=== PATIENT | female | born 1945 | race Caucasian/White ===

== ENCOUNTER → 2017-03-26 | Outpatient (CLI) | payer OTHER ==
[~2017-03-26] MED LIST: CELEXA20 MG PO; CITRACAL + BON1 EACH PO; RALOXIFENE HCL60 MG PO; RED YEAST RICE600 M1 PO; TRAMADOL 50 MG50 MG PO; VITAMIN D-32000 UNIT PO
--- NOTE | ~2017-03-26 | 2DMMODE ---
[facility] [address] [place] [address] 2 D/M-MODE ECHOCARDIOGRAM Name: ALICE CAMACHO Room #: REG CL Evi#: [id number] Admission: 03/26/17 Attend Phys: Howard Wall Discharge: Date of : 43 Date of Service: 03/26/17 1526 Report #: [id number] THIS REPORT FOR: //name// APPROVED REPORT Study performed: 03/26/2017 13:24:40 EXAM: Comprehensive 2D, Doppler, and color-flow Echocardiogram Patient Location: Out-Patient Room #: Echo lab Status: routine Other Information Study Quality: Adequate Indications Abnormal ECG 2D Dimensions RVDd: 32.04 mm LVEF(%): 55.35 (>50%) IVSd: 10.21 (7-11mm) LVOT Diam: 19.61 (18-24mm) LVDd: 43.88 mm PWd: 10.27 (7-11mm) Ascending Ao: 27.52 (22-36mm) LVDs: 31.33 (25-40mm) Aortic Root: 30.20 mm IVC: 15.00 mm Lopez's LVEF: 55.35 % Volumes Left Atrial Volume (Systole) Single Plane 4CH: 32.48 mL Single Plane 2CH: 30.98 mL LA ESV Index: 17.00 mL/m2 Aortic Valve AoV Peak Finn.: 1.33 m/s AO Peak Gr.: 7.08 mmHg LVOT Max P.20 mmHg LVOT Max V: 1.14 m/s CRISTIAN Vmax: 2.59 cm2 Mitral Valve E/A Ratio: 0.6 MV Decel. Time: 366.54 ms MV E Max Finn.: 0.68 m/s MV A Finn.: 1.16 m/s MV PHT: 106.30 ms IVRT: 134.95 ms [facility] [place] [address] 2 D/M-MODE ECHOCARDIOGRAM Name: ALICE CAMACHO Chinmay Room #: REG [facility] [id number] Admission: 03/26/17 Attend Phys: Howard Wall Discharge: Date of : 43 Date of Service: 03/26/17 1526 Report #: [id number] Pulmonary Valve PV Peak Finn.: 0.92 m/s PV Peak Gr.: 3.40 mmHg Pulmonary Vein P Vein S: 0.72 m/s P Vein A: 0.37 m/s P Vein D: 0.43 m/s P Vein A Dur.: 128.0 msec P Vein S/D Ratio: 1.67 Tricuspid Valve TR Peak Finn.: 2.91 m/s RAP Estimate: 5.00 mmHg TR Peak Gr.: 33.93 mmHg PA Pressure: 39.00 mmHg Left Ventricle The left ventricle is normal size. There is normal left ventricular wall thickness. The left ventricular systolic function is normal. The left ventricular ejection fraction is within the normal range. LVEF is 55-60%. Grade I - abnormal relaxation pattern. Right Ventricle The right ventricle is normal size. The right ventricular systolic function is normal. Atria The left atrium size is normal. The right atrium size is normal. Aortic Valve The aortic valve is normal in structure. No aortic regurgitation is present. There is no aortic valvular stenosis. Mitral Valve The mitral valve is normal in structure. Trace mitral regurgitation. No evidence of mitral valve stenosis. Tricuspid Valve The tricuspid valve is normal in structure. There is trace tricuspid regurgitation. The right atrial pressure is estimated at 5 mmHg. There is mild pulmonary hypertension. Pulmonic Valve The pulmonary valve is normal in structure. There is no pulmonic valvular regurgitation. [employer] [facility] [address] [place] [address] 2 D/M-MODE ECHOCARDIOGRAM Name: ALICE CAMACHO Room #: REG CL Mayte#: [id number] Admission: 03/26/17 Attend Phys: Howard Wall Discharge: Date of : 43 Date of Service: 03/26/17 1526 Report #: [id number] The aortic root is normal in size. IVC is normal in size and collapses >50% with inspiration. Pericardium Trace pericardial effusion. <Conclusion> The left ventricle is normal size. LVEF is 55-60%. The aortic valve is normal in structure. The mitral valve is normal in structure. The tricuspid valve is normal in structure. There is trace tricuspid regurgitation. The right atrial pressure is estimated at 5 mmHg. There is mild pulmonary hypertension. The pulmonary valve is normal in structure. Trace pericardial effusion. <ELECTRONICALLY SIGNED> By: Howard Mills MD 03/26/17 1526 1526 1526 Howard Mills MD /INF
== END ==
LOC: NUC 13:52 → CV 13:52
DX: I08.1 Rheumatic disorders of both mitral and tricuspid valves (principal); I44.7 Left bundle-branch block, unspecified; R94.31 Abnormal electrocardiogram [ECG] [EKG]

== ENCOUNTER 2017-03-27 06:17 | Inpatient (IN) | payer OTHER ==
[2017-03-21 14:09] LABS: HEMATOCRIT 42.1 % (37.0-47.0); HEMOGLOBIN 14.2 gm/dL (12.0-15.0); MCH 29.1 pg (26.0-34.0); MCHC 33.6 g/dL (28.0-37.0); MCV 86.4 fL (80.0-100.0); RBC 4.87 mil/uL (4.20-5.00); WBC 7.5 thou/uL (4.0-11.0)
[2017-03-21 14:10] LABS: URINE BILIRUBIN NEGATIVE (Negative); URINE BLOOD 1+ (Negative); URINE COLOR YELLOW; URINE GLUCOSE-RANDOM* NEGATIVE (Negative); URINE KETONES NEGATIVE (Negative); URINE LEUKOCYTES-REFLEX TRACE (Negative); URINE PROTEIN (DIPSTICK) NEGATIVE (Negative); URINE UROBILINOGEN 0.2 E.U./dl (0.2-1.0)
[2017-03-21 14:24] LABS: PROTIME 10.6 Seconds (9.3-11.4)
[2017-03-21 14:28] LABS: ALBUMIN 4.1 g/dL (3.4-5.0); CALCIUM 9.1 mg/dL (8.5-10.1); CREATININE 0.8 mg/dL (0.6-1.0)
[2017-03-21 14:44] LABS: CASTS None Seen /LPF (None Seen); SQUAMOUS >10 Many /LPF (0-3)
[2017-03-21 14:45] LABS: CRYSTALS None Seen /LPF (None Seen); URINE RBC 0-2 Rare /HPF (0-2); URINE WBC-REFLEX 0-5 Rare /HPF (0-5)
[2017-03-26 15:40] LABS: URINE BILIRUBIN NEGATIVE (Negative); URINE BLOOD 1+ (Negative); URINE COLOR YELLOW; URINE GLUCOSE-RANDOM* NEGATIVE (Negative); URINE KETONES TRACE (Negative); URINE LEUKOCYTES-REFLEX NEGATIVE (Negative); URINE PROTEIN (DIPSTICK) NEGATIVE (Negative); URINE SPECIFIC GRAVITY >= 1.030 (1.003-1.035); URINE UROBILINOGEN 0.2 E.U./dl (0.2-1.0)
[2017-03-26 15:46] LABS: CASTS None Seen /LPF (None Seen); CRYSTALS None Seen /LPF (None Seen); SQUAMOUS >10 Many /LPF (0-3); URINE RBC 3-10 Few /HPF (0-2); URINE WBC-REFLEX 0-5 Rare /HPF (0-5)
[~2017-03-27] VITALS: Ht 177.8 cm; Wt 89.8 kg
--- NOTE | ~2017-03-27 | O ---
[facility] [place] [address] OPERATIVE REPORT Name: ALICE CAMACHO Room #: 547-P [facility] IN M.R.#: [id number] Admission: 04/10/17 Attend Phys: Maicol Ashby MD Discharge: 04/16/17 Date of : 43 Report #: [id number] THIS REPORT FOR: //name// CC: FAM unknown Maicol Dumont MD DATE OF SERVICE: 04/10/2017 PREOPERATIVE DIAGNOSIS: Right hip degenerative joint disease, severe. POSTOPERATIVE DIAGNOSIS: Right hip degenerative joint disease, severe. PROCEDURE: Right total hip arthroplasty. SURGEON: Maicol Ashby MD. HEALTH ADVISOR: CARLOS Hollins. INDICATIONS FOR HEALTH ADVISOR: During the course of operation, extensive manipulation, retraction and limb positioning was required. This was especially in light of the patient's size, which did result in an additional time necessary for the case. IMPLANTS UTILIZED: Brittany hip system Secur-Fit Max hip stem, 132 degree neck angle, size 9. We used a -5 femoral head 36 outer diameter. We used a Tritanium hemispherical shell 54 outer diameter and Trident X3 elevated rim insert. DESCRIPTION OF PROCEDURE: After adequate general anesthesia had been obtained, the patient was placed in a lateral decubitus position. Right hip and lower extremity was prepped and draped in the usual meticulous sterile fashion. A posterolateral incision was made in the hip, subQ divided sharply. Hemostasis obtained with electrocautery. The IT band and gluteal fascia was divided. This layer was retracted with a Charnley retractor. Hip was then internally rotated. The external rotators were detached at their insertion, tagged and retracted posteriorly. Capsular incision was made. It likewise was tagged and retracted posteriorly. We then placed a starter roll, dislocated the hip in place. The starter roll at the base of the neck was advanced to the canal. Canal was sequentially reamed to a size 9. Neck osteotomy performed. Attention directed to the acetabulum and acetabulum circumferentially exposed. The patient did have a protrusio type of situation. We did sequentially ream the acetabulum, but we did not ream deeply as she was medialized already. We did do peripheral reaming to allow the cup to seat adequately into the acetabulum. We reamed to a size 52 and 52 trial got a good press fit, so we [address] [address] OPERATIVE REPORT Name: ALICE CAMACHO Room #: 547-P [facility] IN M.R.#: [id number] Admission: 04/10/17 Attend Phys: Maicol Ashby MD Discharge: 04/16/17 Date of : 43 Report #: [id number] reamed to 53 and then irrigated copiously and implanted the shell. We had an excellent press fit. The polyethylene liner was then impacted into place elevated portion posteriorly. Attention was redirected to the femur, sequentially broached to a size 9. We did reduction and with a -5 neck length reapproximated her leg length and she had excellent stability parameters. She was somewhat tight in extension and so, I released her psoas tendon. This resulted in improved extension. We then dislocated the hip, removed the trial components and irrigated copiously, implanted the stem and the -5 head. The hip was reduced. We then placed the sutures of the capsule and the external rotators through the trochanter and tying them over bone bridge. We placed drains deep and superficial. The gluteal fascia and IT band was closed with combination of interrupted [id number] #1 Vicryl as well as running #1 Tevdek. SubQ closed with 2-0 Monocryl, skin closed with luna. Sterile compressive dressing was applied. <ELECTRONICALLY SIGNED> By: Maicol Ashby MD 04/17/17 0723 [id number] [id number] Maciol Ashby MD /nt
--- NOTE | ~2017-03-27 | HC ---
[facility] [place] [address] CONSULTATION Name: ALICE CAMACHO Room #: 547-P [facility] IN M.R.#: [id number] Admission: 04/10/17 Attend Phys: Maicol Ashby MD Discharge: Date of : 43 Report #: [id number] THIS REPORT FOR: //name// CC: FAM unknown Maicol Ashby HISTORY OF PRESENT ILLNESS: The patient is a 71-year-old white female with worsening degenerative arthritis of the right hip, was admitted and underwent a right total hip hemiarthroplasty on 04/10/2017. Postoperatively, she has had a rather slow recovery. She was having difficulty getting her leg up onto the bed. She is being monitored regarding hypertension and postoperative pain medications. She has been involved in the therapy program. She is gradually feeling better now and is moving better. We are seeing her in rehabilitation medicine consultation. PAST MEDICAL HISTORY: Includes hypertension and depression. She has had bilateral total knee replacements and breast augmentation. MEDICATIONS: Please see the full medication listing. SOCIAL HISTORY: Lives in a house alone, 3 steps in, 15 inside. She did not utilize any gait aids premorbidly. REVIEW OF SYSTEMS: Did not offer any current complaints of chest pain, shortness of breath, or abdominal discomfort. Some right hip discomfort, which is relatively mild overall. She notes she is feeling better. PHYSICAL EXAMINATION: GENERAL: She is a pleasant 71-year-old somewhat overweight white female, in no obvious distress. The patient is alert and pleasant. VITAL SIGNS: Last recorded temp is 97.4, pulse 81, respirations 18, and blood pressure 129/58. HEENT: Appeared to be benign. Cranial nerves are grossly intact. Facies are symmetric. EXTREMITIES: She has functional range of motion of both upper extremities without obvious focal weakness. DTRs are 1. Her right hip is dressed with the wound VAC in place. There is no focal calf swelling. She can dorsiflex the right ankle. Functional range of motion of the left lower extremity without obvious focal weakness. DTRs are 1. Bilateral knee incisions are well healed. No focal calf swelling. Functionally, she is standby assistance with sit to stand. She is ambulating 150 feet with a front-wheeled walker with standby assistance. She is noted to be with physical therapy. She is to use the walker. ASSESSMENT: A 71-year-old white female with the following problem list: 1. Right hip severe degenerative arthritis, status post total hip arthroplasty on 04/10/2017, [place] [address] CONSULTATION Name: ALICE CAMACHO Room #: 547-P [facility] IN [facility].#: [id number] Admission: 04/10/17 Attend Phys: Maicol Ashby MD Discharge: Date of : 43 Report #: [id number] 2. Functional mobility and activities of daily living deficits. She is progressing nicely. 3. Hypertension. 4. Depression. 5. Bilateral total knee replacements. PLAN: She is too high level to warrant an acute in-hospital inpatient rehabilitation stay. The anticipation is that she will be returning directly home with some home healthcare. I would agree with this approach. She had some questions regarding car transfers and we will ask physical therapy to check back and address those questions. Discussion was held with case management and the patient's nurse. Thank you for asking us to assist in this patient's care. By: [id number] Bam Odonnell MD /nt
[2017-03-30 13:32] LABS: URINE BILIRUBIN NEGATIVE (Negative); URINE BLOOD TRACE (Negative); URINE COLOR YELLOW; URINE GLUCOSE-RANDOM* NEGATIVE (Negative); URINE KETONES NEGATIVE (Negative); URINE LEUKOCYTES-REFLEX 1+ (Negative); URINE PROTEIN (DIPSTICK) NEGATIVE (Negative); URINE UROBILINOGEN 0.2 E.U./dl (0.2-1.0)
[2017-03-30 13:48] LABS: CASTS None Seen /LPF (None Seen); SQUAMOUS >10 Many /LPF (0-3)
[2017-03-30 13:49] LABS: URINE RBC 0-2 Rare /HPF (0-2); URINE WBC-REFLEX 0-5 Rare /HPF (0-5)
[2017-03-30 13:50] LABS: CRYSTALS None Seen /LPF (None Seen)
[2017-04-05] MEDS ORDERED: ATIVAN1 MG PO (14:29)
[2017-04-10] VITALS (11 sets, daily range): BP systolic 107–140; BP diastolic 56–90
[2017-04-11] VITALS: BP 109/57
[2017-04-11 05:00] VITALS: BP 131/60
[2017-04-11 06:28] LABS: HEMATOCRIT 34.5 % (37.0-47.0); HEMOGLOBIN 11.5 gm/dL (12.0-15.0); MCH 28.6 pg (26.0-34.0); MCHC 33.2 g/dL (28.0-37.0); MCV 86.1 fL (80.0-100.0); RBC 4.01 mil/uL (4.20-5.00); RDW 13.9 % (10.5-14.5); WBC 11.8 thou/uL (4.0-11.0)
[2017-04-11 06:57] VITALS: BP 124/65
[2017-04-11 13:15] VITALS: BP 124/65
[2017-04-11 16:18] VITALS: BP 121/51
[2017-04-11 20:02] VITALS: BP 115/49
[2017-04-12 06:30] LABS: HEMATOCRIT 30.9 % (37.0-47.0); HEMOGLOBIN 10.4 gm/dL (12.0-15.0); MCH 28.9 pg (26.0-34.0); MCHC 33.5 g/dL (28.0-37.0); MCV 86.1 fL (80.0-100.0); RBC 3.59 mil/uL (4.20-5.00); RDW 14.1 % (10.5-14.5); WBC 9.6 thou/uL (4.0-11.0)
[2017-04-12 06:59] VITALS: BP 129/70
[2017-04-12 07:54] VITALS: BP 127/54
[2017-04-12 10:32] VITALS: BP 124/65
[2017-04-12 16:03] VITALS: BP 133/72
[2017-04-12 19:02] VITALS: BP 127/62
[2017-04-13 04:18] VITALS: BP 129/73
[2017-04-13 06:28] LABS: HEMATOCRIT 28.3 % (37.0-47.0); HEMOGLOBIN 9.7 gm/dL (12.0-15.0); MCH 29.1 pg (26.0-34.0); MCHC 34.1 g/dL (28.0-37.0); MCV 85.4 fL (80.0-100.0); RBC 3.31 mil/uL (4.20-5.00); RDW 13.9 % (10.5-14.5); WBC 8.7 thou/uL (4.0-11.0)
[2017-04-13] MEDS ORDERED: XARELTO10 MG PO (07:47)
[2017-04-13 10:10] VITALS: BP 129/51
[2017-04-13 17:07] VITALS: BP 123/51
[2017-04-13 20:02] VITALS: BP 127/51
[2017-04-14 04:04] VITALS: BP 137/67
[2017-04-14 09:30] VITALS: BP 120/54
[2017-04-14 18:04] VITALS: BP 133/51
[2017-04-14 19:41] VITALS: BP 127/55
[2017-04-15 03:37] VITALS: BP 136/72
[2017-04-15 08:30] VITALS: BP 149/72
[2017-04-15 16:00] VITALS: BP 115/43
[2017-04-15 19:10] VITALS: BP 132/59
[2017-04-16 02:42] VITALS: BP 139/65
[2017-04-16 04:48] LABS: HEMATOCRIT 29.4 % (37.0-47.0); HEMOGLOBIN 10.1 gm/dL (12.0-15.0); MCH 29.4 pg (26.0-34.0); MCHC 34.2 g/dL (28.0-37.0); MCV 85.9 fL (80.0-100.0); RBC 3.42 mil/uL (4.20-5.00); RDW 14.1 % (10.5-14.5); WBC 8.8 thou/uL (4.0-11.0)
[2017-04-16 05:40] LABS: ALBUMIN 2.6 g/dL (3.4-5.0); CALCIUM 9.1 mg/dL (8.5-10.1); CREATININE 0.7 mg/dL (0.6-1.0); PHOSPHORUS 4.1 mg/dL (2.5-4.9); POTASSIUM 4.9 mmol/L (3.5-5.1)
[2017-04-16 08:00] VITALS: BP 129/58
[2017-04-16 10:26] VITALS: BP 124/65
== END 2017-04-16 16:25 | disposition home health service (06) | DRG 469 ==
LOC: PRE 06:17 → 5S 15:03 → TBA 04-10 05:57 → PRE 04-10 09:31 → 5S 04-10 15:10
PROVIDERS: Hospitalist; Orthopaedic Surgery
PROC: 0SR90JZ Replacement of Right Hip Joint with Synthetic Substitute, Open Approach (ICD-10-PCS; principal; 2017-04-10)
DX: M16.11 Unilateral primary osteoarthritis, right hip (principal); E43 Unspecified severe protein-calorie malnutrition; F32.9 Major depressive disorder, single episode, unspecified; I10 Essential (primary) hypertension; Z96.653 Presence of artificial knee joint, bilateral; Z60.2 Problems related to living alone
CPT/HCPCS: 10785; 50010; 50101; 50382; 50414; 50455; 50855; 50939; 50953; 51412; 51771; 53000; 55383; 56521; 56525; 56527; 56530; 57095; 62110; 62900; 70005

== ENCOUNTER → 2017-03-27 | Outpatient (CLI) | payer OTHER | LOC: NUC 08:26 | DX: Z01.810 Encounter for preprocedural cardiovascular examination (principal); I44.7 Left bundle-branch block, unspecified; R94.31 Abnormal electrocardiogram [ECG] [EKG] ==